=== PATIENT | female | born 1995 | race Asian ===

== ENCOUNTER 2022-09-19 11:56 | Outpatient (CLI) | payer OTHER ==
[2022-09-19 12:14] LABS: BASOPHILS # (AUTO) 0.1 10^3/uL (0.0-0.1); BASOPHILS % (AUTO) 0.4 %; EOSINOPHILS # (AUTO) 0.1 10^3/uL (0.0-0.7); HCT - HEMATOCRIT 42.8 % (37.0-47.0); HGB - HEMOGLOBIN 14.1 g/dL (12.0-16.0); LYMPHOCYTES # (AUTO) 2.6 10^3/uL (1.5-3.5); LYMPHOCYTES % (AUTO) 19.7 %; MEAN CORPUSCULAR HEMOGLOBIN 29.8 pg (27.0-31.0); MEAN CORPUSCULAR HGB CONC 32.9 g/dL (32.0-36.0); MEAN CORPUSCULAR VOLUME 90.5 fL (81.0-99.0); MEAN PLATELET VOLUME 8.7 fL (7.9-10.8); MONOCYTES # (AUTO) 0.8 10^3/uL (0.0-1.0); MONOCYTES % (AUTO) 5.6 %; NEUTROPHILS # (AUTO) 9.7 10^3/uL (1.5-6.6); NEUTROPHILS % (AUTO) 72.4 %; PLT - PLATELET COUNT 324 10^3/uL (130-450); RED BLOOD COUNT 4.73 10^6/uL (4.20-5.40); WHITE BLOOD COUNT 13.4 x10^3/uL (4.8-10.8)
[2022-09-20 04:08] LABS: HBsAG SCREEN Negative (Negative)
[2022-09-20 06:10] LABS: HIV SCREEN 4TH GENERATION Non Reactive (Non Reactive); RPR Non Reactive (Non Reactive)
== END 2022-09-19 11:57 | disposition home or self-care (01) ==
LOC: LAB 11:56
PROVIDERS: ATTEND Nurse Practitioner
DX: Z34.90 Encounter for supervision of normal pregnancy, unspecified, unspecified trimester (principal); Z36.89 Encounter for other specified antenatal screening
CPT/HCPCS: 36415; 85025; 85027; 86592; 86762; 86850; 86900; 86901; 87340; 87389

== ENCOUNTER 2022-10-19 20:50 | Outpatient (CLI) | payer OTHER ==
--- NOTE | 2022-10-20 13:14 | Ultrasound Report ---
PROCEDURE: OB Detailed Eval INDICATIONS: SUPERVISION OF OUTSIDE/PRIOR DATING DATA: Last menstrual period (LMP): Unknown. LMP-based estimated date of delivery (GOLDIE): Unknown. First dating scan (date and location): 07/20/2022. Estimated date of delivery (GOLDIE) from first dating scan: 01/27/2023. The below data below was generated using the ultrasound GOLDIE of 07/20/2022 TECHNIQUE: Real-time scanning was performed of the fetus, with image documentation and biometric measurements. COMPARISON: OB ultrasound 07/20/2022 FINDINGS: General: A single living intrauterine gestation is present. Presentation: Vertex Placenta: Placental position is anterior, without previa. Amniotic fluid index: 13.5 cm, within normal limits for gestational age. heart rate: 144 beats per minute. Maternal cervical canal: 5.5 cm long; normal length is 2.5 cm or more. biometrics: Biparietal diameter: 6.7 cm 26 weeks 6 days Head circumference: 24.1 cm 26 weeks 5 days Abdominal circumference: 21.5 cm 26 weeks 0 days Femur length: 4.7 cm 25 weeks 3 days Estimated gestational age from initial scan: 25 weeks 5 days Composite gestational age from present scan: 26 weeks 1 day Estimated weight and percentile: 871 g, 48th percentile Measurement variability in biometric dating: +/- 10 days from 12-20 weeks gestation, +/- 2 weeks from 20-30 weeks gestation, +/- 3 weeks at 30 weeks gestation or later. Anatomic survey: Neuro: Ventricles are normal at less than 10 mm. Cisterna magna is normal at 3-11 mm. Cerebellum i s normal in size and morphology. Nuchal skin fold: Normal at less than 6 mm between 14 and 20 weeks gestational age. Face: Nose and lips, facial profile are normal. Spine: No evidence for spina bifida. Heart: 4-chambered heart is present, with normal ventricular outflow tracts. Diaphragm: Diaphragm is intact. Stomach: Left-sided stomach is present. Kidneys: No hydronephrosis. Normal is less than 5 mm in 2nd trimester, less than 7 mm in 3rd trimester. Cord: 3 vessel cord has orthotopic insertion. Bladder: Normal in size. Extremities: All 4 extremities are visualized. IMPRESSION: Single live intrauterine with ultrasound gestational age of 26 weeks 1 day. Anatomy is within normal limits. Reviewed by: Eunice Frances MD on 10/20/2022 1:13 PM PDT Approved by: Eunice Frances MD on 10/20/2022 1:13 PM PDT Station ID: [id number]
== END 2022-10-19 20:51 | disposition home or self-care (01) ==
LOC: DI 20:50
PROVIDERS: ATTEND Nurse Practitioner
DX: Z34.02 Encounter for supervision of normal first pregnancy, second trimester (principal); Z36.89 Encounter for other specified antenatal screening

== ENCOUNTER 2022-12-20 16:32 | Outpatient (CLI) | payer OTHER ==
--- NOTE | 2022-12-21 11:30 | Ultrasound Report ---
PROCEDURE: OB F/U or Repeat INDICATIONS: OUTSIDE/PRIOR DATING DATA: Last menstrual period (LMP): Unknown. LMP-based estimated date of delivery (GOLDIE): Unknown. First dating scan (date and location): 07/20/2022. Estimated date of delivery (GOLDIE) from first dating scan: 01/27/2023. The below data below was generated using the workingEDD of 01/27/2023 TECHNIQUE: Real-time scanning was performed of the fetus, with image documentation and biometric measurements. Endovaginal scanning: Not performed. COMPARISON: 10/19/2022 FINDINGS: General: A single living intrauterine gestation is present. Presentation: Vertex Placenta: Placental position is anterior, without previa. Amniotic fluid index: 13.2 cm, within normal limits for gestational age. heart rate: 137 beats per minute. Maternal cervical canal: Closed biometrics: Biparietal diameter: 8.2 cm, 33 week 0 day Head circumference: 30.5 cm, 33 week 6 day Abdominal circumference: 30.4 cm, 34 week 2 day Femur length: 6.3 cm, 32 week 4 day Estimated gestational age from initial scan: 34 week 4 day Composite gestational age from present scan: 33 week 3 day Estimated weight and percentile: 2246 g, 21 percentile Measurement variability in biometric dating: +/- 10 days from 12-20 weeks gestation, +/- 2 weeks from 20-30 weeks gestation, +/- 3 weeks at 30 weeks gestation or more. Other: Not applicable. IMPRESSION: Single live intrauterine consistent with 33 week 3 day gestation by current ultrasound Reviewed by: Brock Shell MD on 12/21/2022 10:28 AM ASIM Approved by: Brock Shell MD on 12/21/2022 10:28 AM ASIM Station ID: [id number]
== END 2022-12-20 16:33 | disposition home or self-care (01) ==
LOC: DI 16:32
PROVIDERS: ATTEND Obstetrics & Gynecology
DX: O09.293 Supervision of pregnancy with other poor reproductive or obstetric history, third trimester (principal); Z3A.33 33 weeks gestation of pregnancy

== ENCOUNTER 2022-12-30 08:00 | Outpatient (CLI) | payer OTHER | END 2022-12-30 23:59 | disposition home or self-care (01) | LOC: LAB.WC 08:00 | PROVIDERS: ATTEND Nurse Practitioner | DX: Z36.85 Encounter for antenatal screening for Streptococcus B (principal) | CPT/HCPCS: 87797 ==

== ENCOUNTER 2023-01-02 09:08 | Inpatient (IN) | payer OTHER ==
--- NOTE | 2023-01-02 09:52 | PROVIDER PROGRESS NOTE ---
- HPI Current : Vital Signs Temperature 98.2 F 01/02/23 09:44 Heart Rate 99 01/02/23 09:44 Respiratory Rate 16 01/02/23 09:44 Blood Pressure 112/75 01/02/23 09:44 Temperature 98.2 F 01/02/23 09:44 Heart Rate 99 01/02/23 09:44 Respiratory Rate 16 01/02/23 09:44 Blood Pressure 112/75 01/02/23 09:44 O2 Saturation If not protocol: Oxygen Flow, liters/minute
[2023-01-02 10:08] LABS: RUPTURE OF MEMBRANES PLUS POSITIVE (NEGATIVE)
[2023-01-02] MEDS ORDERED: OXYTOCIN 10 UNIT/ML VIAL IM PRN (10:50)
[2023-01-02] MEDS ORDERED: CARBOPROST TROMETHAMINE 250 MCG/ML AMP IM PRN (10:50)
[2023-01-02] MEDS ORDERED: OXYTOCIN/SODIUM CHLORIDE 500 ML IV PRN (10:50)
[2023-01-02] MEDS ORDERED: miSOPROStoL 200 MCG TABLET BC PRN (10:50)
[2023-01-02] MEDS ORDERED: NIFEdipine 10 MG CAPSULE PO PRN (10:50)
[2023-01-02] MEDS ORDERED: TRANEXAMIC ACID IN NACL 1,000 MG/100 ML BAG IV PRN (10:50)
[2023-01-02] MEDS ORDERED: SODIUM CHLORIDE FLUSH 0.9% 10 ML SYRINGE IVP PRN (10:50)
[2023-01-02] MEDS ORDERED: miSOPROStoL 200 MCG TABLET PR PRN (10:50)
[2023-01-02] MEDS ORDERED: lidocaine 1% 20 ML MDV ID PRN (10:50)
[2023-01-02] MEDS ORDERED: LABETALOL 20 MG/4 ML SYRINGE IVP PRN ×3 (10:50)
[2023-01-02] MEDS ORDERED: LACTATED RINGERS 1,000 ML IV PRN (10:50)
[2023-01-02] MEDS ORDERED: TERBUTALINE 1 MG/ML VIAL SUBQ PRN (10:50)
[2023-01-02] MEDS ORDERED: METHYLERGONOVINE 0.2 MG/ML VIAL IM PRN (10:50)
[2023-01-02] MEDS ORDERED: hydrALAZINE INJ 20 MG/ML VIAL IVP PRN ×2 (10:50)
[2023-01-02] MEDS ORDERED: fentaNYL 100 MCG/2 ML VIAL IVP PRN (10:50)
--- NOTE | 2023-01-02 10:51 | HISTORY & PHYSICAL EXAMINATION ---
Admit History - : 3 Parity: 1 : 1 Risk/History: positive: Premature rupture membrane Smoking Status: Never smoker - Mother's Labs Mother's Blood Type: positive: O Mother's RH: positive: Positive GBS: positive: Group B Step Negative Rubella Status: positive: Immune - Other Maternal History Other Maternal History: HPI: Patient is a 27-year-old -0-1-1 at 36 weeks 3 days gestation by 9-week ultrasound presenting for leaking fluid. She woke up this morning around 0630 with a gush of fluid and had some leaking afterwards.. She has good movement. No YOUNG/BV or RUQP. No vaginal bleeding. Denies nausea and vomiting. Denies urinary urgency or dysuria. All other symptoms reviewed and were negative except per HPI. Course LMP: Unknown GOLDIE by LMP: Unknown US Date 06/30/2022, US Age 9 weeks 6 days, GOLDIE by ultrasound: 01/27/2023 Final GOLDIE: 01/27/2023 by 9-week ultrasound Pre- Weight: 130 Problems: Hx of pp depression. Started on sertraline 50 mg 12/02/22 prn vistaril for panic/severe anxiety. Will increase next visit if not greatly improved. Hx GDM insulin PPROM 34wks: Advanced cervical dilation? Hx IUGR: Not on aspirin. EFW ordered. EFW 12/20/2022: 2246 g, 21st percentile BMI: 24.6 Blood type: O+ Antibody Screen: Negative CBC: PLT 324 HCT 42.8 HGB 14.1 RUB: immune VZV: immune (06/30/22) HBsAg: negative HepC: negative ( 06/30/22) RPR/AB-EIA: N-R HIV: N-R Flu: recv'd fall 2021 Covid: initial set + 1 booster PAP: 04/2021 normal, no hx of abnormal GC/CT: negative HSV: denies self and partner Genetic testing: normal per pt FAS: WNL EFW 48% 3 VC anterior placenta LILY normal 50gm OGCT: 08/26/22 131 repeat completed earlier today. 3HR GTT: TDAP: Given 11/04 Breast Pump: Given 11/18 2nd Antibody screen: 3rd trimester (ordered 12/13/22) H/H PLT 3rd trimester HIV GBS: Delivery plan: Contraception: PMH Anxiety and depression: Taking sertraline PSH Denies previous surgeries OB History -0-1-1 1. 09/30/2021, 34 weeks 5 days, , PPROM 2. 2019: Spontaneous SH Denies tobacco, alcohol, drugs Family History Mother: Breast cancer, diabetes Father: Hypertension Allergies No known drug allergies Medications Vistaril 25 mg Sertraline 50 mg Physical exam: General: Alert, oriented, no acute distress Head: Normal cephalic atraumatic Eyes: PERRLA, extraocular motions intact. Respiratory: Normal rate of respiration. No accessory muscle use, normal respi ratory effort. Cardiovascular: Regular rate and rhythm Abdomen: Gravid, nontender, nondistended Extremities: Normal range of motion Neuro: Oriented x3. Normal movements Psych: Appropriate mood and affect. Normal judgment and insight SVE: /-2 FHT: 145 beats per baseline, availability, colorations present, no decelerations. [place]: Quiescent Leaking fluid grossly Labs: ROM plus: Positive Plan 18-year-old -0-1-1 at 36 weeks 3 days gestation with , prelabor rupture of membranes 1. , prelabor rupture of membranes -Admit to L&D, admit labs, epidural at patient's request - One dose misoprostol then oxitocin 2. 36 weeks gestation 3. Depression: _Currently on sertraline. Will continue as she had significant depression last . - HPI Vital Signs Temperature 98.2 F 01/02/23 09:44 Heart Rate 99 01/02/23 09:44 Respiratory Rate 16 01/02/23 09:44 Blood Pressure 112/75 01/02/23 09:44 Temperature 98.2 F 01/02/23 09:44 Heart Rate 99 01/02/23 09:44 Respiratory Rate 16 01/02/23 09:44 Blood Pressure 112/75 01/02/23 09:44 O2 Saturation If not protocol: Oxygen Flow, liters/minute Meds/Allgy - Allergies Allergies/Adverse Reactions: Allergies Allergy/AdvReac Type Severity Reaction Status Date / Time No Known Drug Allergies Allergy Verified 01/02/23 11:54 Physical - Abdominal Exam Vital Signs: Temp Pulse Resp BP Pulse Ox O2 Flow Rate 98.2 F 99 16 112/75 01/02/23 09:44 01/02/23 09:44 01/02/23 09:44 01/02/23 09:44 Plan for Labor - Plan For Labor I expect patient to be DC'd or transferred within 96 hours.: Yes
[2023-01-02] MEDS ORDERED: miSOPROStoL 100 MCG TABLET BC SCH (11:00)
[2023-01-02] MEDS ORDERED: LACTATED RINGERS 1,000 ML IV SCH ×2 (11:00→21:00)
[2023-01-02] MEDS ORDERED: SODIUM CHLORIDE FLUSH 0.9% 10 ML SYRINGE IVP SCH (11:00)
[2023-01-02 11:55] LABS: BASOPHILS % (AUTO) 0.2 %; EOSINOPHILS # (AUTO) 0.1 10^3/uL (0.0-0.7); EOSINOPHILS % (AUTO) 0.6 %; HCT - HEMATOCRIT 39.4 % (37.0-47.0); HGB - HEMOGLOBIN 13.2 g/dL (12.0-16.0); LYMPHOCYTES # (AUTO) 2.2 10^3/uL (1.5-3.5); LYMPHOCYTES % (AUTO) 17.1 %; MEAN CORPUSCULAR HEMOGLOBIN 29.7 pg (27.0-31.0); MEAN CORPUSCULAR HGB CONC 33.5 g/dL (32.0-36.0); MEAN CORPUSCULAR VOLUME 88.5 fL (81.0-99.0); MEAN PLATELET VOLUME 8.9 fL (7.9-10.8); MONOCYTES % (AUTO) 7.9 %; NEUTROPHILS # (AUTO) 9.2 10^3/uL (1.5-6.6); NEUTROPHILS % (AUTO) 73.2 %; PLT - PLATELET COUNT 310 10^3/uL (130-450); RED BLOOD COUNT 4.45 10^6/uL (4.20-5.40); RED CELL DISTRIBUTION WIDTH 12.4 % (12.0-15.0); WHITE BLOOD COUNT 12.6 x10^3/uL (4.8-10.8)
[2023-01-02] MEDS ORDERED: OXYTOCIN/SODIUM CHLORIDE 500 ML IV SCH (14:00)
--- NOTE | 2023-01-02 17:29 | ANESTHESIA ---
Pre-Anesthesia VS, & Labs - Diagnosis term labor, IUP - Procedure epidural for Vital Signs: Temp Pulse Resp BP Pulse Ox O2 Flow Rate 36.8 C 99 16 112/75 01/02/23 12:22 01/02/23 09:44 01/02/23 09:44 01/02/23 09:44 Height: 5 ft Weight (kg): 68.492 kg Body Mass Index: 29.5 BMI Classification: Overweight - NPO Last Fluid Intake: t/o day - Is Patient ?: Yes - Lab Results Current Lab Results: Laboratory Tests 01/02/23 11:40: WBC 12.6 H, RBC 4.45, Hgb 13.2, Hct 39.4, MCV 88.5, MCH 29.7, MCHC 33.5, RDW 12.4, Plt Count 310, MPV 8.9, Neut # (Auto) 9.2 H, Lymph # (Auto) 2.2, [place] # (Auto) 1.0, Eos # (Auto) 0.1, Baso # (Auto) 0.0, Absolute Nucleated RBC 0.00, Nucleated RBC % 0.0 01/02/23 11:40: Blood Type O POSITIVE, Antibody Screen NEGATIVE Lab results reviewed: Yes Fish Bones: 01/02/23 11:40 Home Medications and Allergies Active Medications Acetaminophen (Acetaminophen 500 Mg Tablet) 1,000 mg PO Q6HR PRN PRN Reason: Pain 1-6 or Fever > 38C Carboprost Tromethamine (Carboprost Tromethamine 250 Mcg/Ml Amp) 250 mcg IM .ONCE PRN PRN Reason: Hemorrhage Fentanyl (Fentanyl 100 Mcg/2 Ml Vial) 50 mcg IVP Q1H PRN PRN Reason: Severe Pain (score 7-10) Hydralazine HCl (Hydralazine Inj 20 Mg/Ml Vial) 10 mg IVP .ONCE PRN; Protocol PRN Reason: SBP> or= 160 OR DBP> or= 110 Hydralazine HCl (Hydralazine Inj 20 Mg/Ml Vial) 5 - 10 mg IVP Q20M PRN; Protocol PRN Reason: SBP> or= 160 OR DBP> or= 110 Oxytocin/Sodium Chloride (Pitocin/Sodium Chloride) 500 mls @ 999 mls/hr IV PRN PRN; Protocol PRN Reason: POST- HEMORR PREVENTION Tranexamic Acid (Tranexamic 1,000 Mg/100ml-Nacl) 1,000 mg in 100 mls @ 600 mls/hr IV Q30M PRN PRN Reason: EBL >1200mL and within 3hr Lactated Ringer's (Lr) 1,000 mls @ 125 mls/hr IV .Q8H [facility] Last Admin: 01/02/23 16:52 Dose: 125 mls/hr Lactated Ringer's (Lr) 1,000 mls @ 999 mls/hr IV PRN PRN PRN Reason: PER PHYSICIAN ORDER Oxytocin/Sodium Chloride (Pitocin/Sodium Chloride) 500 mls @ 2 mls/hr IV TITR MARISEL; Protocol Last Admin: 01/02/23 16:52 Dose: 2 milliunit/min, 2 mls/hr Labetalol HCl (Labetalol 20 Mg/4 Ml Syringe) 20 mg IVP .ONCE PRN; Protocol PRN Reason: SBP> or= 160 OR DBP> or= 110 Labetalol HCl (Labetalol 20 Mg/4 Ml Syringe) 20 - 80 mg IVP Q10M PRN; Protocol PRN Reason: SBP> or= 160 OR DBP> or= 110 Labetalol HCl (Labetalol 20 Mg/4 Ml Syringe) 20 - 40 mg IVP Q10M PRN; Protocol PRN Reason: SBP> or= 160 OR DBP> or= 110 Lidocaine HCl (Lidocaine 1% 20 Ml Mdv) 20 ml ID .ONCE PRN PRN Reason: PERINEAL REPAIR Stop: 01/05/23 10:50 Methylergonovine Maleate (Methylergonovine 0.2 Mg/Ml Vial) 0.2 mg IM .ONCE PRN PRN Reason: Hemorrhage Misoprostol (Misoprostol 200 Mcg Tablet) 600 mcg BC .ONCE PRN PRN Reason: Hemorrhage Misoprostol (Misoprostol 200 Mcg Tablet) 800 mcg WA .ONCE PRN PRN Reason: Hemorrhage Misoprostol (Misoprostol 100 Mcg Tablet) 25 mcg BC Q4H [facility] Last Admin: 01/02/23 11:56 Dose: 25 mcg Nifedipine (Nifedipine 10 Mg Capsule) 10 - 20 mg PO Q20M PRN; Protocol PRN Reason: SBP> or= 160 OR DBP> or= 110 Oxytocin (Oxytocin 10 Unit/Ml Vial) 10 unit IM .ONCE PRN PRN Reason: Step One if no IV access. Sertraline HCl (Sertraline 50 Mg Tablet) 50 mg PO DAILY MARISEL Sodium Chloride (Sodium Chloride Flush 0.9% 10 Ml Syringe) 10 ml IVP Q8H MARISEL Sodium Chloride (Sodium Chloride Flush 0.9% 10 Ml Syringe) 10 ml IVP PRN PRN PRN Reason: NEEDED PER PROVIDER ORDERS Terbutaline Sulfate (Terbutaline 1 Mg/Ml Vial) 0.25 mg SUBQ .ONCE PRN PRN Reason: Tachystole Allergies/Adverse Reactions: Allergies Allergy/AdvReac Type Severity Reaction Status Date / Time No Known Drug Allergies Allergy Verified 01/02/23 11:54 Anes History & Medical History - Anesthetic History Anesthesia Complications: reports: No previous complications Family history of Anesthesia Complications: Denies Family history of Malignant Hyperthermia: Denies - Medical History Smoking Status: Never smoker History of Cancer?: No - Obstetrical History : 3 Parity: 1 Events: reports: Premature rupture membrane Exam General: Alert, Oriented x3, Cooperative Dental: WNL Respiratory: Normal breath sounds Cardiovascular: Regular rate Neurological: Normal speech Mental/Cognitive Status: Alert/Oriented X3, Normal for patient Cognitive Status: Within normal limits Plan Anesthesia Type: Epidural Consent for Procedure(s) Verified and Reviewed: Yes Code Status: Attempt Resuscitation ASA classification: 2-Mild systemic disease Is this case an emergency?: No
[2023-01-02] MEDS ORDERED: ROPIVACAINE 0.2% 200 MG/100 ML BAG EP ONE (18:09)
[2023-01-02] MEDS ORDERED: ePHEDrine 50 MG/ML VIAL IVP PRN (18:30)
[2023-01-02] MEDS ORDERED: METOCLOPRAMIDE 10 MG/2 ML VIAL IVP PRN (18:30)
[2023-01-02] MEDS ORDERED: ONDANSETRON 4 MG/2 ML VIAL IVP PRN (18:30)
[2023-01-02] MEDS ORDERED: NALBUPHINE 10 MG/ML AMP IVP PRN (18:30)
[2023-01-02] MEDS ORDERED: NALOXONE 0.4 MG/ML VIAL IVP PRN (18:30)
[2023-01-02] MEDS ORDERED: diphenhydrAMINE INJ 50 MG/ML VIAL IVP PRN (18:30)
[2023-01-02] MEDS ORDERED: ROPIVACAINE 0.2% 200 MG/100 ML BAG EP PRN (18:30)
--- NOTE | 2023-01-02 18:47 | PROVIDER PROGRESS NOTE ---
Labor Progress Note - Uterine Monitoring Uterine Monitoring Mode: positive: External toco Contraction Frequency (min/apart): Irregular Contraction Intensity: positive: Moderate to strong Uterine Resting Tone: positive: Soft - Monitoring Monitor Mode: positive: External ultrasound Heart Rate Baseline: 140 Heart Rate Variability: positive: Moderate (6-25 bmp) Accelerations: positive: Present, 15x15 Decelerations: positive: Early Strip Review: positive: Category I - Vaginal Exam Dilation (in cm): 5 Effacement (%): 80 Station: 1 Cervical Position: Anterior - Labor Progress Note Labor Progress Note/Additional Text: Patient had oxytocin started for hypotonic uterine contractions. Now for 5 cm. Desires epidural. Anticipate .
[2023-01-02] MEDS ORDERED: SIMETHICONE CHEW 80 MG TABLET PO PRN (20:20)
--- NOTE | 2023-01-02 20:20 | DELIVERY NOTE ---
Delivery Note - Labor Labor: positive: Augmented by oxytocin - Delivery Method Delivery Method: positive: Spontaneous vaginal delivery - Presentation Presentation: positive: Vertex - Nuchal Cord Nuchal Cord: positive: None - Anesthetic Anesthetic Type: - Amniotic Fluid Description Amniotic Fluid Description: positive: Clear - [place] : positive: Placed in direct skin contact with mother [place] sex: positive: Female - Cord Cord: positive: 3 vessels - Placenta Placenta: positive: Intact - Estimated Blood Loss Estimated Blood Loss (in cc): 150 - Delivery Comments (Free Text/Narrative) Delivery Comments (Free Text/Narrative): Preoperative Diagnoses , prelabor rupture of membranes 36 weeks gestation Postoperative Diagnoses Same Delivery of live solorzano Delivery Summary: Patient was placed in the dorsal lithotomy position. Upon maternal pushing the head was delivered atraumatically followed by the anterior shoulder, posterior shoulder, then the remainder of the infant's body. A female was delivered with APGARS of 9 at 1 minute and 9 at 5 minutes. The infant was placed on its mother's chest . After the cord finished pulsating, the umbilical cord was clamped times two and cut. The placenta delivered intact with three vessel cord. Placenta [was not] sent to pathology. Thirty units of Pitocin were added to the IV fluid and allowed to run freely. Uterine massage was performed until uterus was deemed firm. Upon inspection of the perineum, vagina and cervix were intact and the patient was hemostatic. Uterus again massaged and found to be firm. Needle and sponge counts were correct. Patient was stable and allowed to recover in L&D room. was stable and remained in room with mother. weight is pending at this time.
[2023-01-03] MEDS: DOCUSATE SODIUM 100 MG CAPSULE PO PRN ×2 (00:32→23:14)
[2023-01-03] MEDS: IBUPROFEN 600 MG TABLET PO SCH ×5 (00:32→23:14)
[2023-01-03] MEDS: ACETAMINOPHEN 500 MG TABLET PO SCH ×4 (00:32→23:14)
[2023-01-03] MEDS ORDERED: SERTRALINE 50 MG TABLET PO SCH (09:00)
--- NOTE | 2023-01-03 10:58 | PROVIDER PROGRESS NOTE ---
Subjective - Prog Note Date Prog Note Date: 01/03/23 Prog Note Time: 10:54 - Subjective Pt reports feeling: Improved Subjective: Pt well, lochia appropriate, + amb, + void, + mike PO, + flatus Feeding going well -- breast Bonding with baby Denies: F/C/N/V/CP/SOB Denies: dizziness, weakness, lightheadedness, difficulty with ambulation, palpitations Denies: YOUNG / visual changes VSS NAD Conjunctiva pink, pale sclera +S1, S2, CTAB, no increased work of breathing Abd soft, NT, ND, uterus 1 below U lochia: appropriate Ext: neg CCE Objective - Vital Signs/Intake & Output Vital Signs: Vital Signs x48h Temp Pulse Resp BP Pulse Ox 01/03/23 10:00 98.2 F 70 16 100/59 L 99 01/03/23 03:59 98.4 F 69 16 101/56 L 97 Intake & Output: Intake & Output 12/31/22 01/01/23 01/02/23 01/03/23 23:59 23:59 23:59 23:59 Intake Total 896.000 Output Total 400 375 Balance 496.000 -375 - Lab Results Fish Bones: 01/02/23 11:40 Other Labs: Lab Results x24hrs 01/02/23 01/02/23 Range/Units 11:40 11:40 WBC 12.6 H (4.8-10.8) x10^3/uL RBC 4.45 (4.20-5.40) 10^6/uL Hgb 13.2 (12.0-16.0) g/dL Hct 39.4 (37.0-47.0) % MCV 88.5 (81.0-99.0) fL MCH 29.7 (27.0-31.0) pg MCHC 33.5 (32.0-36.0) g/dL RDW 12.4 (12.0-15.0) % Plt Count 310 (130-450) 10^3/uL MPV 8.9 (7.9-10.8) fL Neut # (Auto) 9.2 H (1.5-6.6) 10^3/uL Lymph # (Auto) 2.2 (1.5-3.5) 10^3/uL [place] # (Auto) 1.0 (0.0-1.0) 10^3/uL Eos # (Auto) 0.1 (0.0-0.7) 10^3/uL Baso # (Auto) 0.0 (0.0-0.1) 10^3/uL Absolute Nucleated RBC 0.00 x10^3/uL Nucleated RBC % 0.0 /100WBC Blood Type O POSITIVE Antibody Screen NEGATIVE Assessment/Plan - Problem List (1) state Impression: meeting milestones continue to advance (2) premature rupture of membranes, onset of labor within 24 hours of rupture, first trimester Impression: resolved no signs of infection (3) labor in third trimester with delivery Impression: doing well Qualifiers: Fetus number: single or unspecified fetus Qualified Code(s): O60.14X0 - labor third trimester with delivery third trimester, not applicable or unspecified (4) Mother currently breast-feeding Impression: going well no signs of breast engorgement no breast complaints (5) Depression affecting Impression: was on zoloft prior used buproprion will do buproprion now as well - per patient request sertraline was causing headaches sending now so it will be available at the pharmacy now, no need to stop on the way home with (6) Depression affecting , Impression: doing well will check PHQ9 before discharge f/u 1-2 weeks for mood check precautions reviewed well supported with FOB & mom home
[2023-01-03] MEDS: ACETAMINOPHEN 500 MG TABLET PO PRN (17:09)
[2023-01-03 20:26] VITALS: O2SAT 100
[2023-01-04] MEDS: IBUPROFEN 600 MG TABLET PO SCH ×2 (05:06→11:21)
[2023-01-04 05:18] VITALS: BP 109/62
--- NOTE | 2023-01-04 06:19 | PROVIDER PROGRESS NOTE ---
Subjective - Prog Note Date Prog Note Date: 01/04/23 Prog Note Time: 06:18 - Subjective Pt reports feeling: Improved Subjective: Pt well, lochia appropriate, mike PO, + void, + flat, + ambulation Feeding going well -- breast Pt reports ready to go home, has safe home to return to reviewed depression precautions in detail as well as how / when to return to the gym. Reviewed: discharge instructions, post- instructions, follow up instructions, precautions, precautions regarding: feeding, depression, bleeding, and anticipated post- course All questions answered Pt verbalized understanding VSS NAD Conjunctiva pink, pale sclera +S1, S2 CTAB Breasts soft, not engorged Abd soft, NT, ND Fundus firm below umbilicus Perineum bleeding appropriate Ext: neg CCE HgB/ plts unremarkable antepartum Objective - Vital Signs/Intake & Output Vital Signs: Vital Signs x48h Temp Pulse Resp BP Pulse Ox 01/04/23 05:00 97.7 F 75 18 109/62 100 Intake & Output: Intake & Output 01/01/23 01/02/23 01/03/23 01/04/23 23:59 23:59 23:59 23:59 Intake Total 896.000 Output Total 400 375 Balance 496.000 -375 - Lab Results Fish Bones: 01/02/23 11:40 Assessment/Plan - Problem List (1) state Impression: all milestones met discharge instructions and precautions reviewed. (2) premature rupture of membranes, onset of labor within 24 hours of rupture, first trimester Impression: resolved baby doing well no signs of infection. (3) labor in third trimester with delivery Impression: resolved Qualifiers: Fetus number: single or unspecified fetus Qualified Code(s): O60.14X0 - P reterm labor third trimester with delivery third trimester, not applicable or unspecified (4) Mother currently breast-feeding Impression: going well using nipple gel packs for some nipple pain (5) Depression affecting Impression: on buproprion and ordered and ready at pharmacy doing edinburgh scale now (6) Depression affecting , Impression: on buproprion doing well f/u edinburgh scale precautions reviewed f/u 1 week for mood check with RN
--- NOTE | 2023-01-04 06:30 | Discharge Plan ---
Discharge Plan Problem Reviewed?: Yes Disposition: Home, Self Care Condition: Good Prescriptions: buPROPion HCL [Bupropion HCl] 75 mg PO DAILY 120 Days #60 tablet buPROPion HCL [Bupropion Xl] 150 mg PO DAILY 120 Days #60 tab Ibuprofen [Motrin] 600 mg PO Q6H PRN #30 tab PRN Reason: Pain Diet: Regular Activity Restrictions: post restrictions Shower Restrictions: No Driving Restrictions: No Weight Bearing: Full Weight Instruction Topics: Vaginal After, Depression Health Concerns: routine and depression concerns Assessment: ok for D/C Additional Instructions or Follow Up instructions: f/u 2 weeks for mood check at clinic No Smoking: If you smoke, Please STOP! Call for help. Follow-up with: Gabino Christian MD [Provider Admit Priv/Credential] -
--- NOTE | 2023-01-04 06:32 | DISCHARGE SUMMARY ---
"Discharge Summary Admit Date: 01/02/23 Discharge Date: 01/04/23 Discharging Provider: domi Primary Care Provider: gabriela Code Status: Attempt Resuscitation Condition at Discharge: Good Discharge Disposition: 01 Home, Self Care - DIAGNOSES Admission Diagnoses: premature rupture of membranes at 36 weeks gestation depression Discharge Diagnoses with Status of Each Condition: risk of depression reviewed - HPI History of Present Illness: Pt admitted with PROM, IOL with miso and pit progressed to labor epidural delivery as below: Patient was placed in the dorsal lithotomy position. Upon maternal pushing the head was delivered atraumatically followed by the anterior shoulder, posterior shoulder, then the remainder of the 's body. A female infant was delivered with APGARS of 9 at 1 minute and 9 at 5 minutes. The was placed on its mother's chest . After the cord finished pulsating, the umbilical cord was clamped times two and cut. The placenta delivered intact with three vessel cord. Placenta [was not] sent to pathology. Thirty units of Pitocin were added to the IV fluid and allowed to run freely. Uterine massage was performed until uterus was deemed firm. Upon inspection of the perineum, vagina and cervix were intact and the patient was hemostatic. Uterus again massaged and found to be firm. Needle and sponge counts were correct. Patient was stable and allowed to recover in L&D room. Infant was stable and remained in room with mother. routine PP care - CONSULTS | PROCEDURES Procedures: IOL epidural care - HOSPITAL COURSE Hospital Course: IOL epidural care - ALLERGIES Allergies/Adverse Reactions: Allergies Allergy/AdvReac Type Severity Reaction Status Date / Time No Known Drug Allergies Allergy Verified 01/02/23 11:54 - MEDICATIONS Home Medications: Ambulatory Orders Medication Instructions Recorded Confirmed Ibuprofen [Motrin] 600 mg PO Q6H PRN #30 tab 01/03/23 buPROPion HCL [Bupropion HCl] 75 mg PO DAILY 120 Days #60 tablet 01/03/23 buPROPion HCL [Bupropion Xl] 150 mg PO DAILY 120 Days #60 tab 01/03/23 - PHYSICAL EXAM AT DISCHARGE General Appearance: positive: No acute distress Eyes Bilateral: positive: Normal inspection ENT: positive: ENT inspection nml Neck: positive: Nml inspection Respiratory: positive: No respiratory distress, Breath sounds nml Cardiovascular: positive: Regular rate & rhythm, No murmur, No gallop Abdomen: positive: Non-tender (uterus firm 2 below umb) Skin: positive: Color nml Extremities: positive: Non-tender, No pedal edema Neurologic/Psychiatric: positive: Oriented x3 - LABS Result Diagrams: 01/02/23 11:40 - QUALITY (Female Hip Fx Only) Was patient sent home on osteoporosis medication?: No - FOLLOW UP Follow Up: 2 weeks at [facility] for mood check [place] -- 16 will get home health and call back the person in [employer] who helps with depression / behavioral health and mood check at clinic and FOB at home and mother as well. - TIME SPENT Time Spent in Discharge (Minutes): 30"
[2023-01-04] MEDS ORDERED: buPROPion XL 150 MG TABLET PO SCH (09:00)
[2023-01-04] MEDS: ACETAMINOPHEN 500 MG TABLET PO PRN (11:21)
[2023-01-04] MEDS: ACETAMINOPHEN 500 MG TABLET PO SCH (11:25)
--- NOTE | 2023-01-04 11:54 | Labor Flowsheet ---
Labor Flowsheet Datetime Report Generated by CPN: 01/04/2023 11:54 Datetime: 01/04/2023 05:07 VITAL SIGNS NBP Sys/Lilo/Mean (mmHg): 109 : 62 : 71 Pulse: 76 Datetime: 01/03/2023 20:15 SpO2 (%): 99 Datetime: 01/02/2023 22:15 Respirations: 18 PAIN Pain Scale: 0 Datetime: 01/02/2023 21:16 Temperature (C): 37.0 Datetime: 01/02/2023 20:24 Membranes Ruptured Date/Time: 01/02/2023 06:30 Amniotic Fluid Odor: Normal Datetime: 01/02/2023 20:20 Stage of : Recovery Datetime: 01/02/2023 20:18 Anesthesia Comments: epidural pump off Datetime: 01/02/2023 20:15 Medication Comments: pitocin wide open LaborFlag: Labor Datetime: 01/02/2023 20:11 UTERINE ACTIVITY Monitor Mode: External Frequency (min): 1.5-3 Quality: Strong Duration (sec): 60-100 Pattern: Normal: <= 5 Contractions in 10 Minutes Resting Tone (Palpate): Relaxed ASSESSMENT A Monitor Mode: External US FHR Baseline Rate : 160 Variability: Minimal - Undetectable to <=5 bpm Accelerations: 15X15 Decelerations: Early; Variable Category: Category II Datetime: 01/02/2023 20:02 I/O Interventions: Straight Cath (ml) @ 50 Datetime: 01/02/2023 20:00 Pitocin Checklist: At Least 1 Acceleration of 15 bpm x 15 Seconds in 30 Minutes or Adequate Variabi lity; No More than 1 Late Deceleration Occurred in Past 30 Minutes; No More than 2 Variable Decelerat ions > 60 Seconds in Duration and decreasing >60 bpm in 30 minutes; No More than 5 Uterine Contractio ns in 10 Minutes for any 20 Minute Interval; Uterus Palpates Soft between Contractions FHR Baseline Changes: Tachycardia Actions for Decelerations: Provider Notified Comments: delivery imminent Datetime: 01/02/2023 19:58 COMMUNICATION Communication: Provider at Bedside Datetime: 01/02/2023 19:53 Provider Notified (Name): Dr Gino Communication Comments: requested to come for delivery Datetime: 01/02/2023 19:47 Patient Care Comments: During estes placement attempt #2, was gently pulling vaginal rugae forward to find urethra and noted baby's hair about 1 inch in from introitis Datetime: 01/02/2023 19:11 Patient Position/Activity: Right Tilt; Semi-Fowlers Datetime: 01/02/2023 19:10 Monitor Interventions for FHR: Ultrasound Adjusted Datetime: 01/02/2023 19:08 MEDICATIONS Pitocin (milliunits): Increased to @ 6 Datetime: 01/02/2023 19:00 Oxygen Method: Room Air Datetime: 01/02/2023 18:30 Temperature Route: Oral Datetime: 01/02/2023 18:22 Epidural Procedure Other: Pump Started Anesthesia Level Check: T10- Umbilicus Datetime: 01/02/2023 18:16 Epidural Procedure: Loading Dose Datetime: 01/02/2023 18:10 ANESTHESIA Anesthesia Plans: Epidural Epidural Positioning: Sitting Datetime: 01/02/2023 18:06 PROCEDURE TIME OUT Procedure Verify: Correct Patient Identity; Correct Side and Site are Marked; Accurate Procedure Co nsent Form; Agreement on Procedure to be Done; Correct Patient Position Datetime: 01/02/2023 17:49 Vaginal Bleeding: Normal Show Cervix, Consistency: Soft Cervix, Position: Anterior Datetime: 01/02/2023 17:00 Pain Presence: None/Denies Datetime: 01/02/2023 16:54 PATIENT CARE IV/Blood Work: IV Started; IV Infusing per Order; IV Bag Number @ 1 Datetime: 01/02/2023 11:55 Membrane Status: Ruptured Amniotic Fluid Color: Clear Cervical Ripening Agents: Cytotec @ Datetime: 01/02/2023 10:50 VAGINAL EXAM Dilatation (cm): 1.0 Effacement (%): 60 Station: -2 Exam by: Dr Christian Membranes Rupture Method: Spontaneous Vaginal Exam Comments: per Dr Brunner H_P TEACHING Instructional Method: Verbal Plan of Care: Plan of Care Discussed Unit Routine: [place] to Room; Call Ying Labor/Induction: Cervical Ripening; Augmentation Medications: Cervical Ripening; Pitocin
== END 2023-01-04 11:52 | disposition home or self-care (01) | DRG 807 ==
LOC: WFO 09:08 → FBP 09:13 → WFO 10:49 → FBP 10:50
PROVIDERS: ADMIT Obstetrics & Gynecology; ATTEND Obstetrics & Gynecology
PROC: 10E0XZZ Delivery of Products of Conception, External Approach (ICD-10-PCS; principal; 2023-01-02)
DX: O42.013 Preterm premature rupture of membranes, onset of labor within 24 hours of rupture, third trimester (principal); Z37.0 Single live birth; O99.344 Other mental disorders complicating childbirth; Z3A.36 36 weeks gestation of pregnancy; F32.A Depression, unspecified; F41.9 Anxiety disorder, unspecified; O76 Abnormality in fetal heart rate and rhythm complicating labor and delivery
CPT/HCPCS: 84112; 85025; 86850; 86900; 86901; A9270; J7120; 82570; 84156; 99215